=== PATIENT | male | born 1950 | race Caucasian/White ===

== ENCOUNTER → 2024-07-28 11:10 | Outpatient (REF) | payer MEDICARE, OTHER, SELFPAY | LOC: HWRCS 11:10 | PROVIDERS: ATTENDING PHYSICIAN Internal Medicine Cardiovascular Disease; FAMILY PHYSICIAN Internal Medicine | DX: Z98.890 Other specified postprocedural states (principal) | CPT/HCPCS: 93306 ==

== ENCOUNTER 2025-03-24 20:17 | Observation (INO) | payer MEDICARE, SELFPAY ==
[2025-03-24 12:38] VITALS: BP 170/94
[2025-03-24 13:22] LABS: Hematocrit 46.2 % (39.0-52.0); Hemoglobin 15.5 g/dL (13.0-18.0); Mean Corp Hgb Conc. 33.5 g/dL (33.0-37.0); Mean Corpuscular Volume 93.7 fL (80.0-94.0); Nucleated Red Blood Cells % 0 % (-); Platelet Count 185 10^3/uL (130-400); Red Cell Dist. Width 12.6 % (11.5-14.5)
[2025-03-24 14:03] LABS: ALT (SGPT) 42 U/L (0-50); AST (SGOT) 43 U/L (17-59); Albumin 4.3 g/dl (3.5-5.0); Alkaline Phosphatase 60 U/L (38-126); Blood Urea Nitrogen 32 mg/dl (9-20); Calcium 9.6 mg/dl (8.4-10.2); Carbon Dioxide 29 mmol/L (22-30); Chloride 103 mmol/L (98-107); Glucose 90 mg/dl (70-99); Potassium 4.6 mmol/L (3.5-5.1); Sodium 136 mmol/L (135-145); Total Protein 7.5 g/dl (6.3-8.2); eGFR > 60.00
--- NOTE | 2025-03-24 14:56 | ED.GENMED ---
History of Present Illness
<VIRGINIA Salgado - Last Filed: 03/24/25 18:37>
General
Chief Complaint: Visual Problem
Source: patient
Exam Limitations: none
Time Seen by Provider: 03/24/25 14:46
Nursing documentation reviewed up to this point in time: agreed with
History of Present Illness
History of Present Illness:
Patient is a 75-year-old male with past medical history of mitral valve repair in 2018 on baby aspirin, rheumatoid arthritis who presents to the ER for evaluation of visual disturbance. Patient woke up at 5 AM and noticed that his vision in his
right eye was substantially less than his left eye. This lasted about 1 to 2 hours. He had no associated symptoms including no headaches no numbness tingling/weakness to upper or lower extremities. He does report his eye was red this morning. He
denies any foreign body sensation. He denied any associated chest pain shortness of breath. 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 Clarke who sent patient to the ER. Patient is currently asymptomatic. He does report he had a similar episode in May
2020 and was hospitalized at [facility]. Symptoms were thought to be a possible emboli at that time which caused the symptoms.
Patient was sent to the ER for stroke workup.
Patient's pressures were documented as normal by ophthalmology 16 in the right eye 11 left
Past History
<VIRGINIA Salgado - Last Filed: 03/24/25 18:37>
Past History
ED Past Medical History: Arrthythmia (Paroxysmal atrial fibrillation), HTN, Valvular disease and Other (Kidney stones); Negative CAD
ED Past Surgical History: Appendectomy, Cardiac (Mitral valve repair), Orthopedic, Tonsilectomy and Urological (Lithotripsy with stent placement 2007)
Social History
Tobacco: Non-smoker
Alcohol: None
Personal:
Living: with family
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
Family History
Family History: CAD
Phy Exam
<ANUPAM SalgadoNP - Last Filed: 03/24/25 18:37>
General Physical Exam
General Presentation: no apparent distress
General age: appears stated age
General Skin: warm and dry
General Habitus: normal
General Mental: alert
General Hydration: appears well hydrated
Eye Exam
Eye Exam: PERRL, EOMI and other (right eye with injected conjunctiva)
Eye Exam General: PERRL: bilateral and EOM intact: bilateral
Pupil Exam: Bilateral: round and reactive
Cardiovascular Exam
Cardiovascular Exam: no murmur, normal peripheral pulses and bradycardia
Pulmonary Exam
Pulmonary Exam: lungs clear and no respiratory distress
Neurological Exam
Neurological Exam: alert, oriented x3, no motor deficits, no sensory deficits and speech normal
NIH Stroke Score
Level of Consciousness: 0 - Alert
LOC questions: 0-Answers both correctly
LOC Commands: 0-Performs both correctly
Best Gaze: 0-Normal
Visual [place]: 0=Normal, no visual loss
Facial palsy: 0=Normal, symmetrical
Motor - Right Arm: 0=No drift 10 seconds
Motor - Right Le-No drift 5 seconds
Motor - Left Le-No drift 5 seconds
Limb Ataxia: 0-Absent
Sensation: 0-Normal
Best Language: 0-No aphasia
Dysarthria: 0-Normal
[place] Coma Scale
Eye Opening: Spontaneous
Verbal Response: Oriented
Motor Response: Obeys Commands
GCS Total Score: 15
Cerebellar
Cerebellar Function: normal finger to nose
Musculoskeletal Exam
Musculoskeletal Exam: full ROM
Skin Exam
Skin Exam: normal color and warm/dry
Psychiatric Exam
Psychiatric Exam: normal mood/affect
<Paco Tapia, - Last Filed: 03/24/25 19:18>
[place] Coma Scale
GCS Total Score: 15
Course
<VIRGINIA Salgado - Last Filed: 03/24/25 18:37>
Orders/Labs/Results
Orders:
Orders
03/24/25 12:43
Electrocardiogram (*1) Urgent
Reason for Study: Other
Other Reason for Exam: visual changes being r/o for TIA
EKG- Treatment ONCE
03/24/25 13:13
C-Reactive Protein Urgent
Comment: ADD ON
Complete Blood Count/With Diff Urgent
Comprehensive Metabolic Panel Urgent
Erythrocyte Sed Rate Urgent
Comment: ADD ON
03/24/25 15:08
CT Head W/o Iv Contrast Urgent
Comment:
Reason For Exam: sudden right eye vision loss
03/24/25 15:09
Add On- LAB Urgent
Tests Added?: sed rate and CRP
03/24/25 15:10
Add On- LAB Urgent
Tests Added?: troponin
US Carotid [US Cerebrovascular] Urgent
Comment:
Reason For Exam: right eye visual loss
03/24/25 16:36
0.9% Sodium Chloride 1000 ml [Nss] 1,000 ml IV BOLUS
03/24/25 16:42
Troponin I Urgent
Comment: MUST BE COLLECTED NO GREEN TOP IN LAB
03/24/25 18:35
Visual Acuity- Treatment ONCE
Abnormal Lab Results
03/24/25
13:13
MCH 31.4 H pg
(27.0-31.0)
MPV 11.3 H fL
(7.4-10.4)
Absolute Monos (auto) 0.7 H 10^3/uL
(0.1-0.6)
Monocytes % 10.7 H %
(1.7-9.3)
BUN 32 H mg/dl
(9-20)
Total Bilirubin 1.4 H mg/dl
(0.2-1.3)
03/24/25 13:13
03/24/25 13:13
Vital Signs
Initial and Last Documented VS:
Initial Vital Signs
Temp Pulse Resp BP Pulse Ox
98.2 F 56 16 170/94 98
03/24/25 12:38 03/24/25 12:38 03/24/25 12:38 03/24/25 12:38 03/24/25 12:38
Last Documented Vital Signs
Temp Pulse Resp BP Pulse Ox
98.2 F 61 18 155/91 99
03/24/25 12:38 03/24/25 18:30 03/24/25 18:30 03/24/25 18:00 03/24/25 17:45
Polisher Eyeglass Frames consulted with Physician
Polisher Eyeglass Frames consulted with physician?: Yes
Name of Physician Consulted: Willie
<Paco Tapia, DO - Last Filed: 03/24/25 19:18>
Orders/Labs/Results
Orders:
Orders
03/24/25 12:43
Electrocardiogram (*1) Urgent
Reason for Study: Other
Other Reason for Exam: visual changes being r/o for TIA
EKG- Treatment ONCE
03/24/25 13:13
C-Reactive Protein Urgent
Comment: ADD ON
Complete Blood Count/With Diff Urgent
Comprehensive Metabolic Panel Urgent
Erythrocyte Sed Rate Urgent
Comment: ADD ON
03/24/25 15:08
CT Head W/o Iv Contrast Urgent
Comment:
Reason For Exam: sudden right eye vision loss
03/24/25 15:09
Add On- LAB Urgent
Tests Added?: sed rate and CRP
03/24/25 15:10
Add On- LAB Urgent
Tests Added?: troponin
US Carotid [US Cerebrovascular] Urgent
Comment:
Reason For Exam: right eye visual loss
03/24/25 16:36
0.9% Sodium Chloride 1000 ml [Nss] 1,000 ml IV BOLUS
03/24/25 16:42
Troponin I Urgent
Comment: MUST BE COLLECTED NO GREEN TOP IN LAB
03/24/25 18:35
Visual Acuity- Treatment ONCE
Abnormal Lab Results
03/24/25
13:13
MCH 31.4 H pg
(27.0-31.0)
MPV 11.3 H fL
(7.4-10.4)
Absolute Monos (auto) 0.7 H 10^3/uL
(0.1-0.6)
Monocytes % 10.7 H %
(1.7-9.3)
BUN 32 H mg/dl
(9-20)
Total Bilirubin 1.4 H mg/dl
(0.2-1.3)
03/24/25 13:13
03/24/25 13:13
Vital Signs
Initial and Last Documented VS:
Initial Vital Signs
Temp Pulse Resp BP Pulse Ox
98.2 F 56 16 170/94 98
03/24/25 12:38 03/24/25 12:38 03/24/25 12:38 03/24/25 12:38 03/24/25 12:38
Last Documented Vital Signs
Temp Pulse Resp BP Pulse Ox
98.2 F 61 18 155/91 99
03/24/25 12:38 03/24/25 18:30 03/24/25 18:30 03/24/25 18:00 03/24/25 17:45
[place];VIRGINIA Salgado - Last Filed: 03/24/25 18:37>
MDM/Problems Addressed
Differential Diagnosis Includes:
Not limited to conjunctivitis, stroke
MDM/Problems Addressed:
As documented patient is a 75-year-old male with sudden decreased vision from right eye this morning lasting 1 to 2 hours currently improved. Seen by ophthalmology and concern for stroke sent for stroke workup. Patient has no neurological deficits
here in the ER. He had something similar to this in 2020. Patient is afebrile normal white count stable hemoglobin BUN minimally elevated fluids given CT head unremarkable ultrasound carotid showed minimal calcified carotid bulb plaque on each
side measurements suggest a less than 50% stenosis on either side.
Will require mission for stroke workup
Chronic conditions affecting care:
Mitral valve repair, hypertension, RA
<VIRGINIA Salgado - Last Filed: 03/24/25 18:37>
*Radiology
Radiology exam reviewed: radiology read reviewed
*Pulse Oximetry
SaO2: 98
Oxygen Mode of Delivery: Room air
Patient hypoxic: no
*EKG
Interpreted by ED Provider?: Yes
Interpretation: normal
Comparison EKG: no changes
Heart Rate: 54
Rate: bradycardiac
Rhythm: sinus
*Critical Care Note
Total Time (30-74mins, 75-104mins- exclusive of procedures): Not Applicable
ED Attending Note
<VIRGINIA Salgado - Last Filed: 03/24/25 18:37>
-
Portions of this chart may have been created with voice recognition software.� Occasional wrong word or��sound alike� substitutions may have occurred due to the inherent limitations of voice recognition software.
<Paco Tapia DO - Last Filed: 03/24/25 19:18>
ED Attending Note
Patient seen and examined by attending physician: Yes
ED Attending Note:
I have reviewed and agree with history and treatment plan by VIRGINIA Ferrara. My exam revealed 75-year-old male with no acute neurologic deficits. History concerning for multiple TIAs. Admit for further workup.
Discharge Plan
Departure
Patient Disposition: Admit
Date of Disposition: 03/24/25
Time of Disposition: 18:37
Admit to: Med/Surg
Admit to doctor: hospitalist
Presentation/result/management discussed w/ accepting MD/DO: Hospitalist
Patient with high blood pressure during this ER visit?: Yes
Condition: Fair
Covid-19: Not Applicable
Discharge Problem:
acute visual disturbance
Prescriptions:
No Action
Theralith XR 1 EACH tablet extended release
4 ea PO DAILY
folic acid 1 MG tablet
1 mg PO MOTUWETHFRSA
timolol maleate (PF) 1 EACH dropperette
1 ea BOTH EYES BID
latanoprost (PF) 7.5 ML drops
7.5 ml BOTH EYES DAILY
Simponi Aria:
1 dose INFUSION Q6W
Multivitamin Prostrate Central
1 cap PO DAILY
albuterol sulfate 1 PUFF HFA aerosol inhaler
2 puff inhalation R Q4HPRN PRN (Reason: SOB)
Referrals:
UNKNOWN - PT DOES,NOT KNOW [Family Provider]
Interventions
Interventions:
*Risk Screen - Suicide Last Done: 03/24/25 12:38
*General Assessment Last Done: 03/24/25 12:38
*Neglect/Abuse Screening Last Done: 03/24/25 12:38
*ED- Fall Risk Assessment Last Done: 03/24/25 14:43
*ED COVID-19 Vaccine History Last Done: 03/24/25 14:43
*ED Influenza Vaccine History Last Done: 03/24/25 14:43
ED- Neurological Assessment Last Done: 03/24/25 14:43
ED-EENT Assessment Last Done: 03/24/25 14:43
ED Swallowing Screen Last Done: 03/24/25 14:43
Discharge Date and Time
Print Language: SLOVAK
[2025-03-24 15:00] VITALS: BP 159/103
[2025-03-24 16:05] LABS: C-Reactive Protein < 5.00 mg/L (0.0-10.00)
[2025-03-24 16:43] VITALS: BP 140/80
[2025-03-24] MEDS: NSS 1000 IV (16:50)
[2025-03-24 17:27] LABS: Troponin I 0.019 ng/ml
[2025-03-24 18:00] VITALS: BP 155/91
--- NOTE | 2025-03-24 19:55 | HPS.HSE ---
Family Physician
-
Family Physician: NOT KNOW UNKNOWN - PT DOES
Chief Complaint
-
Vision Changes
History of Present Illness
Patient is a 75y M with PMH significant for rheumatoid arthritis, prior TIAs and Fuch's corneal dystrophy who presents to ED complaining of vision changes in the R eye. Patient states that he awoke this AM around 5. He noted blurry and dim
vision in the R eye that lasted for about 1 1/2 - 2 hours. Patient denies any complete loss of vision / partial field cuts / etc. No eye pain, itching. No headache, focal numbness, tingling, weakness, etc.
Patient reports similar prior episode in 2020 which was attributed to BRVO / TIA. He is on ASA daily.
Medical History
Past Medical History
Past Medical History: Reports Other
Additional Past Medical History:
Rheumatoid Arthritis
Mitral Regurgitation
TIAs
Fuchs Corneal Dystrophy
Nephrolithiasis
Transient A-Fib (post-op MV repair)
Past Surgical History: Reports Other
Additional Past Surgical History:
MV Repair
Cataracts
Social History
Tobacco: Non-smoker
Alcohol: Occasional
Drug: None
Family History
Family History: Not pertinent
Allergies / Home Medications
Allergies reflects when Allergies were last updated in [facility].
Home Medications with original date entered in [facility]
Allergy/Medication List:
Allergies
Allergy/AdvReac Type Severity Reaction Status Date / Time
Penicillins Allergy childhood Verified 03/24/25 12:43
Home Medications
aspirin 81 mg chewable tablet 81 mg PO DAILY Heart Disease/Condition 03/24/25
atorvastatin 40 mg tablet (Lipitor) 40 mg PO DAILY High Cholesterol 03/24/25
brimonidine 0.2 % eye drops 1 drp RIGHT EYE BID Eye Condition 03/24/25
cholecalciferol (vitamin D3) 25 mcg (1,000 unit) tablet (Vitamin D3) 25 mcg PO DAILY Supplement 03/24/25
latanoprost 0.005 % eye drops 1 drp BOTH EYES HS Eye Condition 03/24/25
moxifloxacin 0.5 % eye drops 1 drp BOTH EYES QID Eye Condition 03/24/25
prednisone 5 mg tablet 5 mg PO DAILY 03/24/25
therapeutic multivitamin 1 tab PO DAILY Supplement 03/24/25
vitamin E 268 mg (400 unit) capsule 268 mg PO DAILY Supplement 03/24/25
Review of Systems
-
History Source: Patient
A 12 point ROS was completed and negative except as noted: Yes
Constitutional: Denies Fever, Fatigue or Chills
EENT: Reports Other (blurry vision); Denies Sore Throat or Runny Nose
Respiratory: Denies Cough or Trouble Breathing
Cardiac: Denies Chest Pain or Palpitations
Abdomen/GI: Denies Abdominal Pain, Nausea, Vomiting or Diarrhea
: Denies Dysuria or Frequency
Musculoskeletal: Denies Joint Pain or Edema
Neurological: Denies Dizzy, Headache, Weakness or Numbness
Psych: Denies Depression or Anxiety
Physical Exam
Vital Signs
Vital Signs
Temp Pulse Resp BP Pulse Ox
98.2 F 61 18 155/91 99
03/24/25 12:38 03/24/25 18:30 03/24/25 18:30 03/24/25 18:00 03/24/25 17:45
Physical Exam
General: Other (75y M in no distress.)
HEENT: Other (R eye injected sclera / conjunctiva. No discharge. Normal EOM.)
Respiratory: Clear; No Wheezes, Rales or Rhonchi
Cardiac: S1/S2 and Regular Rhythm; No Murmur
GI: Soft, Non Tender, Non Distended and Normal Bowel Sounds
Musculoskeletal: No Clubbing, No Cyanosis and No Edema
Neuro: AO x 3, Nonfocal/grossly intact and Other (No evident visual field cuts / deficits.)
Laboratory Results
-
03/24/25 13:13
03/24/25 13:13
Laboratory Results
Total Bilirubin 1.4 mg/dl (0.2-1.3) H 03/24/25 13:13
AST 43 U/L (17-59) 03/24/25 13:13
ALT 42 U/L (0-50) 03/24/25 13:13
Alkaline Phosphatase 60 U/L (38-126) 03/24/25 13:13
Troponin I 0.019 ng/ml 03/24/25 16:42
Impression/Plan
-
A/P: Patient is a 75y M with PMH significant for RA and prior TIAs who presents to ED complaining of blurry vision in the R eye this AM.
Transient Vision Disturbance
- Observe overnight for further evaluation and treatment.
- ? TIA / BRVO versus primary ophtho pathology.
- Seen by Ophtho today and sent to ED for further evaluation.
- CT head and CUS unremarkable in the ED.
- Check MRI and Echo.
- Neurology evaluation.
- Continue daily ASA.
- Check lipids, A1C, etc.
- Follow for any new / recurrent symptoms.
- Eye inflamed at present; however, patient states most of this irritation occurred during / following extensive eye exam by Ophtho. No pain / itching / etc.
Rheumatoid Arthritis
- No acute joint symptoms.
- On Simponi as an outpatient.
- Continue folate supplementation.
Fuchs Corneal Dystrophy
- Continue usual eye gtt regimen.
- Follow-up with Ophtho after discharge.
DVT Prophylaxis: SCDs
Code Status: Full
[2025-03-24 22:05] VITALS: BP 153/85; BMI 21.4
[2025-03-24 23:00] VITALS: BP 141/76
[2025-03-24] MEDS: XALATAN OPHTHALMIC SOLUTION 1 DROP BOTH EYES (23:05)
[2025-03-24] MEDS: LIPITOR 40 MG PO (23:50)
[2025-03-24] MEDS: DELTASONE 5 MG PO (23:50)
[2025-03-24] MEDS: CILOXAN 0.3% OPHTHALMIC SOLUTION 1 DROP BOTH EYES (23:57)
[2025-03-24] MEDS: MURO 128/ADSORBONAC 5% EYE DROPS 1 DROP BOTH EYES (23:57)
[2025-03-24] MEDS: ALPHAGAN 0.2% EYE DROPS 1 DROP RIGHT EYE (23:57)
[2025-03-25 03:00] VITALS: BP 112/72
[2025-03-25 07:00] VITALS: BP 114/72
--- NOTE | 2025-03-25 07:33 | PTCARENOTE ---
Patient arrived on unit @2208 via stretcher from ED, ambulate to bed. Patient AAOx3 denies any pain or discomfort. Skin assessment completed, oriented to unit, call heard within reach.
[2025-03-25 08:39] LABS: Hematocrit 48.7 % (39.0-52.0); Hemoglobin 16.8 g/dL (13.0-18.0); Mean Corp Hgb Conc. 34.5 g/dL (33.0-37.0); Mean Corpuscular Volume 90.9 fL (80.0-94.0); Platelet Count 219 10^3/uL (130-400); Red Cell Dist. Width 12.7 % (11.5-14.5)
[2025-03-25] MEDS: LOW STRENGTH ASPIRIN 81 MG PO (08:48)
[2025-03-25] MEDS: LIPITOR 40 MG PO (08:49)
[2025-03-25] MEDS: DELTASONE 5 MG PO (08:49)
[2025-03-25] MEDS: CILOXAN 0.3% OPHTHALMIC SOLUTION 1 DROP BOTH EYES ×2 (08:53→12:40)
[2025-03-25] MEDS: ALPHAGAN 0.2% EYE DROPS 1 DROP RIGHT EYE (09:01)
[2025-03-25] MEDS: FOLVITE 1 MG PO (09:01)
[2025-03-25 09:04] LABS: Blood Urea Nitrogen 24 mg/dl (9-20); Calcium 9.8 mg/dl (8.4-10.2); Carbon Dioxide 25 mmol/L (22-30); Chloride 103 mmol/L (98-107); Estimated Creatinine Clearance 73 ml/min; Glucose 154 mg/dl (70-99); Potassium 5.0 mmol/L (3.5-5.1); Sodium 135 mmol/L (135-145); Very Low Density Lipoprotein 13 mg/dl (0-30); eGFR > 60.00
[2025-03-25] MEDS: XALATAN OPHTHALMIC SOLUTION BOTH EYES (09:11)
[2025-03-25] MEDS: MURO 128/ADSORBONAC 5% EYE DROPS 1 DROP BOTH EYES (09:12)
[2025-03-25 09:20] LABS: HDL Cholesterol 110 mg/dl; LDL Cholesterol, Calculated 87 mg/dl
--- NOTE | 2025-03-25 09:30 | W.PN.HOSP.TC ---
Today's Communication/Plan
-
likely discharge today if ok with neurology
Assessment / Plan
Assessment / Plan
Physical Exam
General: Other (75y M in no distress.)
HEENT: Other (R eye injected sclera / conjunctiva. No discharge. Normal EOM.)
Respiratory: Clear; No Wheezes, Rales or Rhonchi
Cardiac: S1/S2 and Regular Rhythm; No Murmur
GI: Soft, Non Tender, Non Distended and Normal Bowel Sounds
Musculoskeletal: No Clubbing, No Cyanosis and No Edema
Neuro: AO x 3, Nonfocal/grossly intact and Other (No evident visual field cuts / deficits.)
Patient is a 75y M with PMH significant for RA and prior TIAs who presents to ED complaining of blurry vision in the R eye this AM.
Transient Vision Disturbance
Resolved
He feels back to normal
For MRI study
- ? TIA / BRVO versus primary ophtho pathology.
- Seen by Ophtho and sent to ED for further evaluation.
- CT head and CUS unremarkable in the ED.
- Neurology evaluation.
- Continue daily ASA.
- Lipid panel showed total cholesterol 210, LDL 87, HDL 110, triglycerides 69. Hemoglobin A1c 5.6
- Eye looked normal.
Rheumatoid Arthritis
- No acute joint symptoms.
- On Simponi as an outpatient.
- Continue folate supplementation.
Fuchs Corneal Dystrophy
- Continue usual eye gtt regimen.
- Follow-up with Ophtho after discharge.
DVT Prophylaxis: SCDs
Code Status: Full
Total dc time spent to see the patient, examine the patient, review data and lab results, discuss dischareg/ treatment plan with patient, , nursing staff around 67 minutes
Anticipated Discharge: Today
Subjective/Interval History
-
Date of Service: March 25, 2025
He feels back to normal No focal weakness or numbness. No blurred vision
Objective Data
-
Labs:
Laboratory Results
03/25/25
08:21
WBC 7.7
Hgb 16.8
Hct 48.7
Plt Count 219
Sodium 135
Potassium 5.0
Chloride 103
Carbon Dioxide 25
BUN 24 H
Creatinine 0.8
Glucose 154 H
Calcium 9.8
Vital Signs:
Vital Signs
Temp Pulse Resp BP Pulse Ox
97.3 F 65 18 114/72 99
03/25/25 07:00 03/25/25 07:00 03/25/25 07:00 03/25/25 07:00 03/25/25 07:00
I&O
03/24/25 03/25/25 03/26/25
06:59 06:59 05:59
Intake Total 480 / 480
Balance 480 / 480
--- NOTE | 2025-03-25 10:39 | CON.NEURO4 ---
Consultation - Neurology 4
-
CONSULTING PHYSICIAN: Dr. Benny Loja
REFERRING PHYSICIAN: Dr. Rickey Vivar
DICTATED BY: dr. Benny Loja
DATE/TIME OF REQUEST: 03/24/2025
DATE/TIME OF CONSULTATION: 03/24/2025
Reason for Consultation: Transient visual disturbance
ASSESSMENT AND PLAN:
The patient is a 75 years old male who complained of transient visual disturbance in the right eye that lasted about 1-1/2 to 2 hours and then he returned to his baseline.
The MRI of the brain does not show an acute intracranial abnormality.
The carotid ultrasound did not show significant stenosis
The patient was on aspirin at home. The plan is to add Plavix 75 mg daily to aspirin 81 mg daily.
He will also be on Lipitor 40 mg daily. The lipid panel showed a total cholesterol of 210, LDL 87, HDL 110, triglycerides 69. ESR was 2 and the Hemoglobin A1c was 5.6.
The neurologic examination is normal.
He needs holter monitoring and echocardiogram as an outpatient.
Follow-up in neurology clinic in about 3 weeks.
History of Present Illness:
The patient is a 75 years old male who complained of transient visual disturbance in the right eye that lasted about 1-1/2 to 2 hours and then he returned to his baseline. He says that the vision was not clear in the right eye but he denies any
complete loss of vision in the right eye. He denies any eye pain or itching.
Past Medical History: Rheumatoid arthritis, transient A-fib (status post mitral valve repair)
Review of Systems:
The patient denies headache, dizziness, chest pain, shortness of breath, fever, chills, nausea, vomiting and diarrhea.
Neurologic Examination:
The patient is alert and oriented x 3,
Speech is clear,
The cranial nerves II to XII are grossly intact,
The motor strength is grossly 5 out of 5 bilaterally in the upper extremities and the lower extremities,
The sensations are grossly intact,
The cerebellar examination does not show ataxia,
The patient's gait was within normal limits.
Lab Results:
Neuro Imaging:
Impression:
(Mr. / Ms.) KATE LOPEZ is a 75 year old M who has presented to the hospital with (symptoms/chief complaint).
Differentials for the patient's presentation include:
1.
2.
3.
4.
Patient has the following risk factors for their symptoms:
IV Tenecteplase/IAT candidacy
Recommendations:
1.
2.
3.
Discussed patient care with:
Vital Signs and Labs
-
Vital Signs and Labs:
Vital Signs
Temp Pulse Resp BP Pulse Ox
36.7 C 70 18 121/71 99
03/25/25 15:00 03/25/25 15:00 03/25/25 15:00 03/25/25 15:00 03/25/25 15:00
Lab Results
03/25/25 08:21
03/25/25 08:21
Sodium 135 mmol/L (135-145) 03/25/25 08:21
Potassium 5.0 mmol/L (3.5-5.1) 03/25/25 08:21
BUN 24 mg/dl (9-20) H 03/25/25 08:21
Glucose 154 mg/dl (70-99) H 03/25/25 08:21
Calcium 9.8 mg/dl (8.4-10.2) 03/25/25 08:21
LDL Cholesterol, Calc 87 mg/dl 03/25/25 08:21
Medications
-
Home Medications
�Medication �Instructions �Recorded
aspirin 81 mg chewable tablet 81 mg PO DAILY Heart 03/24/25
Disease/Condition
atorvastatin 40 mg tablet (Lipitor) 40 mg PO DAILY High Cholesterol 03/24/25
brimonidine 0.2 % eye drops 1 drp RIGHT EYE BID Eye Condition 03/24/25
cholecalciferol (vitamin D3) 25 25 mcg PO DAILY Supplement 03/24/25
mcg (1,000 unit) tablet (Vitamin
D3)
latanoprost 0.005 % eye drops 1 drp BOTH EYES HS Eye Condition 03/24/25
moxifloxacin 0.5 % eye drops 1 drp BOTH EYES QID Eye Condition 03/24/25
prednisone 5 mg tablet 5 mg PO DAILY INFLAMMATION 03/24/25
therapeutic multivitamin 1 tab PO DAILY Supplement 03/24/25
vitamin E 268 mg (400 unit) capsule 268 mg PO DAILY Supplement 03/24/25
clopidogrel 75 mg tablet (Plavix) 75 mg PO DAILY #30 tabs 03/25/25
folic acid 1 mg PO DAILY 03/25/25
[2025-03-25 11:15] VITALS: BP 133/74
[2025-03-25 11:42] LABS: Glycohemoglobin (HgbA1c) 5.6 % (4.0-5.9)
--- NOTE | 2025-03-25 14:30 | CM ---
Patient seen bedside, initial assessment completed. Patient is a 75y M with PMH significant for rheumatoid arthritis, prior TIAs and Fuch's corneal dystrophy who presents to ED complaining of vision changes in the R eye.
Patient resides w/ significant other in a 3STH, no steps. Patient is independent in all areas. No DME reported. Denies SNF/HC hx.
Address, point of contact and insurance verified
PCP: Breezy Chan
Pharmacy: [facility]
Patient admitted under obs services. [facility] form verbally reviewed, copy provided, copy on chart
Patient expressed that he was in the ED for 9 1/2 hours and that it should be better coordination w/ overflow while patients are waiting on a bed. Patient shared a lack of communication of the unknown regarding his scans, patient is due to get a CT
scan today. Patient stated if he does not get it done today, he will request to leave. Patient stated he will follow up w/ his nurse about timing of scan to determine if he will leave.
Plan: Home, no needs
--- NOTE | 2025-03-25 14:39 | W.DCSUMMARY ---
Discharge Summary
Discharge Data
Date of Admission: 03/24/25
Date of Discharge: 03/25/25
-
Pending Results: No
Hospital Course
75 years old male presented to the hospital for evaluation of visual disturbances in the right eye. His symptoms resolved upon presentation. 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 Scan of the head did not
show acute findings. Patient was admitted for MRI study. MRI of the brain did not show acute stroke. Patient was evaluated by neurologist. Recommendation to do dual antiplatelet platelet therapy with aspirin and Plavix then continue with the
Plavix as patient was taking aspirin before this episode. Neurologist felt that this could be TIA. Vascular ultrasound did not show critical stenosis of carotid. Neurologist recommended outpatient follow-up. 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
[employer]) was updated to follow-up for heart monitor and echocardiogram. Patient remained hemodynamically stable. Neurological examination remained intact. He did not have any skilled needs. Patient was discharged home in a stable condition.
Discharge Plan
-
Patient Disposition: Home (Routine Discharge)
Discharge Diagnosis/Procedures: Likely diagnosis is transient ischemic attack
You had MRI and imaging studies. You were seen by neurologist. Recommendation to continue aspirin 81 mg, Plavix 75 mg daily for 21 days then stop aspirin continue with the Plavix.
Continue with Lipitor.
Neurologist recommended outpatient follow-up in 2 weeks. Recommended heart monitoring. Please contact your primary care doctor to set up an outpatient senior quality analyst or refer for refinery process engineer evaluation to set it up.
Diet: As tolerated
Referrals:
Benny Loja MD [Active, Neurology] - in two weeks
UNKNOWN - PT DOES,NOT KNOW [Family Provider]
Prescriptions:
New
clopidogrel [Plavix] 75 mg tablet
75 mg PO DAILY Qty: 30 0RF
Continued
aspirin 81 mg Tablet,Chewable
81 mg PO DAILY
latanoprost 0.005 % Drops
1 drp BOTH EYES HS
atorvastatin [Lipitor] 40 mg Tablet
40 mg PO DAILY
prednisone 5 mg Tablet
5 mg PO DAILY
therapeutic multivitamin Tablet
1 tab PO DAILY
brimonidine 0.2 % Drops
1 drp RIGHT EYE BID
vitamin E 268 mg (400 unit) Capsule
268 mg PO DAILY
moxifloxacin 0.5 % Drops
1 drp BOTH EYES QID
cholecalciferol (vitamin D3) [Vitamin D3] 25 mcg (1,000 unit) Tablet
25 mcg PO DAILY
folic acid
1 mg PO DAILY
Discharge Orders:
Discharge Patient (As Directed); Ordered 03/25/25
Ordered By: Akira Villareal
Discharge Date and Time
Discharge Date/Time: 03/25/25 16:18
Print Language: ALBAN[place]
[2025-03-25 15:00] VITALS: BP 121/71
--- NOTE | 2025-03-25 16:02 | W.PN.UPDATE ---
Update Note
Progress Note Update
Addendum
I reached out to the patient and nurse Radhika to find out why discharge process is delayed.
Patient was telling me that neurologist had wanted him to have CAT scan contrast study when he met him this morning before MRI study. Nurse did not know about CAT scan study. CAT scan study was never ordered.
I had communicated with Dr Loja to get his input about MRI result and discharge recommendations. Neurologist did not mention it. And medical consultation note of neurologist was still incomplete by time of writing this note
- I reached out to neurologist Dr Loja to clarify. Per neurology, no need for CAT scan since MRI did not show acute stroke. I relayed this to the patient, he was understandably upset for waiting for CAT scan study.
Myself and his nurse Radhika gave him instructions at bed side. He graciously accepted our apology. I communicated to Dr Loja about the situation.
Also Pt sees Dr Wayne, reached out to on-call Dr Rosas to get long term care social worker heart monitor and echo as OP.
End
== END 2025-03-25 16:18 | disposition home or self-care (01) ==
LOC: 3 WEST ACU 20:17
PROVIDERS: Emergency Medicine; ADMITTING PHYSICIAN Hospitalist; ATTENDING PHYSICIAN Internal Medicine; CONSULT PHYSICIAN Psychiatry & Neurology Neurology; EMERGENCY PHYSICIAN Emergency Medicine
DX: H53.8 Other visual disturbances (principal); M06.9 Rheumatoid arthritis, unspecified; I48.0 Paroxysmal atrial fibrillation; I10 Essential (primary) hypertension; R00.1 Bradycardia, unspecified; G31.9 Degenerative disease of nervous system, unspecified; H54.61 Unqualified visual loss, right eye, normal vision left eye; H18.519 Endothelial corneal dystrophy, unspecified eye; I34.0 Nonrheumatic mitral (valve) insufficiency; R79.89 Other specified abnormal findings of blood chemistry; Z86.73 Personal history of transient ischemic attack (TIA), and cerebral infarction without residual deficits; Z79.51 Long term (current) use of inhaled steroids; Z95.2 Presence of prosthetic heart valve; Z79.82 Long term (current) use of aspirin; Z87.442 Personal history of urinary calculi; Z90.49 Acquired absence of other specified parts of digestive tract; Z95.5 Presence of coronary angioplasty implant and graft; Z82.49 Family history of ischemic heart disease and other diseases of the circulatory system; Z96.0 Presence of urogenital implants; Z88.0 Allergy status to penicillin; Z79.899 Other long term (current) drug therapy; Z79.52 Long term (current) use of systemic steroids; Z79.02 Long term (current) use of antithrombotics/antiplatelets
CPT/HCPCS: 70450; 70551; 80048; 80053; 80061; 83036; 84484; 85025; 85027; 85652; 86140; 93005; 93880; 96360; 99285; G0378

== ENCOUNTER → 2025-03-30 11:22 | Outpatient (REF) | payer MEDICARE, BC, SELFPAY | LOC: RCS 11:22 | PROVIDERS: ATTENDING PHYSICIAN Internal Medicine Cardiovascular Disease; FAMILY PHYSICIAN Internal Medicine; OTHER PHYSICIAN Ophthalmology | DX: H53.121 Transient visual loss, right eye (principal); Z98.890 Other specified postprocedural states | CPT/HCPCS: 93306 ==

== ENCOUNTER → 2025-05-09 08:26 | Outpatient (REF) | payer MEDICARE, BC, SELFPAY | LOC: RAD 08:26 | PROVIDERS: ATTENDING PHYSICIAN Internal Medicine | DX: J10.1 Influenza due to other identified influenza virus with other respiratory manifestations (principal); R61 Generalized hyperhidrosis | CPT/HCPCS: 71046 ==

== ENCOUNTER → 2025-05-24 11:31 | Outpatient (REF) | payer MEDICARE, BC, SELFPAY | LOC: RAD 11:31 | PROVIDERS: ATTENDING PHYSICIAN Internal Medicine | DX: J10.1 Influenza due to other identified influenza virus with other respiratory manifestations (principal); H53.121 Transient visual loss, right eye; I48.0 Paroxysmal atrial fibrillation; M05.9 Rheumatoid arthritis with rheumatoid factor, unspecified; H34.8320 Tributary (branch) retinal vein occlusion, left eye, with macular edema; R61 Generalized hyperhidrosis | CPT/HCPCS: 71270; 74178; Q9967 ==